=== PATIENT | male | born 1960 ===

== ENCOUNTER → 2016-08-18 08:46 | Day surgery (SDC) | payer OTHER ==
[~2016-08-18 08:46] MED LIST: Buffered Lidocaine 1% SYRIN* 3 ML/SYR SYRINGE INTRADERM ONE; Bupivacaine 0.25% SDV* 30 ML ONE; Dexamethasone IV* 4 MG/ML 1 ML (4 MG) IV SLOW PU ONE; Dexamethasone IV* 4 MG/ML 1 ML (4 MG) ONE; Famotidine IV* 10 MG/ML 2 ML (20 mg) IV ONE; Famotidine IV* 10 MG/ML 2 ML (20 mg) ONE; Ketorolac INJ* 30 MG/ML 1 ML VIAL ONE; Midazolam* 1 MG/ML 5 ML VIAL (5 MG) ONE; Ondansetron INJ* 2 MG/ML VIAL IV PRN; Ondansetron INJ* 2 MG/ML VIAL ONE; Propofol* 10 MG/ML 20 ML BTL IV PUSH ONE; fentaNYL* 50 MCG/ML 2 ML VIAL (100 MCG VIAL) ONE; oxyCODONE/Acetamin 5/325 MG* TAB PO PRN
[2016-08-18 14:53] VITALS: BP 132/91
--- NOTE | 2016-08-20 18:09 | OP ---
DATE OF OPERATION: 08/18/16 - [facility] DATE OF : 56 SURGEON: Ray Howard MD PLASTIC TOP ASSEMBLER: CLIF Falcon ANESTHESIOLOGIST: Dr. Pawel Escamilla. ANESTHESIA: Local MAC. PRE-OP DIAGNOSIS: Right carpal tunnel syndrome. POST-OP DIAGNOSIS: Right carpal tunnel syndrome. OPERATIVE PROCEDURE: Right open carpal tunnel release. INDICATIONS: Vadim is a 55-year-old inmate. He has had progressive bilateral carpal tunnel symptoms for quite some time. He has had elective diagnostics. We talked about risks and benefits. He has failed nonoperative management and just keeps progressing. At this time, he elected to proceed with surgery. ESTIMATED BLOOD LOSS: 5 mL. COMPLICATIONS: None. FINDINGS: As expected. DESCRIPTION OF PROCEDURE: Vadim was seen in the preoperative holding area and correct side, site and procedure were identified. We came back to the operating room where he got some anesthesia and then I infiltrated the operative area with 0.5% Marcaine. The arm was then prepped and draped in the usual fashion and a formal time-out was performed. Incision was made in standard location longitudinally about 2 to 3 cm in length for carpal tunnel release. Dissection was taken down to the skin and subcutaneous tissue and palmar fascia to identify the transverse carpal ligament. I then went ahead and released the transverse carpal ligament just off the radial aspect of the hook of the hamate. Release was carried out from distal to proximal. When I got to level of the proximal aspect of the incision , I created a subcutaneous tunnel just off the ulnar side of the palmaris longus tendon. A Kimberley retractor was placed in the skin and subcutaneous tissue retracted superficially. Under direct visualization, I then released the transverse carpal ligament with tenotomy scissors to a level about 4 to 5 cm proximal to the volar wrist flexion crease. I checked the decompression, there was absolutely no compression on the nerve proximally or distally. I therefore irrigated the wound. The skin was closed with some 5-0 nylon suture. The wound was dressed with Xeroform, 4x4's, sterile Webril, and an Jamey wrap. Tourniquet was then deflated. It had been inflated prior to making skin incision. He was then woken up and taken to the recovery room in stable condition. [id number]/[facility] #: [id number] [facility]
== END | disposition home or self-care (01) ==
LOC: OREAST 08:46
PROVIDERS: ATTEND Orthopaedic Surgery Hand Surgery
DX: G56.01 Carpal tunnel syndrome, right upper limb (principal); Z87.891 Personal history of nicotine dependence
CPT/HCPCS: J1100; J1885; J2250; J2405; J2704; J3010

== ENCOUNTER 2016-09-19 10:03 | Day surgery (SDC) | payer OTHER ==
[~2016-09-19 10:03] MED LIST changes: -Bupivacaine 0.25% SDV* 30 ML ONE; -Dexamethasone IV* 4 MG/ML 1 ML (4 MG) ONE; -Famotidine IV* 10 MG/ML 2 ML (20 mg) ONE; -Ketorolac INJ* 30 MG/ML 1 ML VIAL ONE; -Midazolam* 1 MG/ML 5 ML VIAL (5 MG) ONE; -Ondansetron INJ* 2 MG/ML VIAL IV PRN; -Ondansetron INJ* 2 MG/ML VIAL ONE; -Propofol* 10 MG/ML 20 ML BTL IV PUSH ONE; -fentaNYL* 50 MCG/ML 2 ML VIAL (100 MCG VIAL) ONE; -oxyCODONE/Acetamin 5/325 MG* TAB PO PRN
[2016-09-19] MEDS ORDERED: Famotidine IV* 10 MG/ML 2 ML (20 mg) ONE (11:42)
[2016-09-19] MEDS ORDERED: Dexamethasone IV* 4 MG/ML 1 ML (4 MG) ONE (11:42)
[2016-09-19] MEDS ORDERED: Bupivacaine 0.25% SDV* 30 ML ONE (12:09)
[2016-09-19] MEDS ORDERED: HYDROcodone/ACETAMIN 5-325 MG* 1 TAB PO PRN (12:19)
[2016-09-19] MEDS ORDERED: fentaNYL* 50 MCG/ML 2 ML VIAL (100 MCG VIAL) IV PRN (12:19)
[2016-09-19] MEDS ORDERED: Ketorolac INJ* 30 MG/ML 1 ML VIAL IV PRN (12:19)
[2016-09-19] MEDS ORDERED: Ondansetron INJ* 2 MG/ML VIAL IV PRN (12:19)
[2016-09-19] MEDS ORDERED: Midazolam* 1 MG/ML 2 ML VIAL (2 MG) ONE (12:20)
[2016-09-19] MEDS ORDERED: fentaNYL* 50 MCG/ML 2 ML VIAL (100 MCG VIAL) ONE (12:20)
[2016-09-19] MEDS ORDERED: Propofol* 10 MG/ML 20 ML BTL IV PUSH ONE (12:32)
[2016-09-19] MEDS ORDERED: Lidocaine 2% PF * 5 ML VIAL ONE (12:32)
[2016-09-19 15:05] VITALS: BP 114/73
--- NOTE | 2016-09-20 04:04 | OP ---
DATE OF OPERATION: 09/19/16 - [facility] DATE OF : 56 SURGEON: Ray Howard MD PAPER PLATE MACHINE TENDER: CLIF Falcon ANESTHESIOLOGIST: Dr. Burleson. ANESTHESIA: Local MAC. PRE-OP DIAGNOSIS: Left carpal tunnel syndrome. POST-OP DIAGNOSIS: Left carpal tunnel syndrome. OPERATIVE PROCEDURE: Left open carpal tunnel release. INDICATIONS: Vadim is a 55-year-old inmate. He had bilateral clinical and electrodiagnostic carpal tunnel syndrome. He has been dealing with this for years. He has tried bracing, anti-inflammatories and activity modification. He has done well with a recent right carpal tunnel release, and came back to the office desiring a left carpal tunnel release. We again talked about risks and benefits and he elected to proceed with surgery. ESTIMATED BLOOD LOSS: 5 mL. COMPLICATIONS: None. FINDINGS: As expected. DESCRIPTION OF PROCEDURE: Vadim was seen in the preoperative holding area and the correct site, side, and procedure were identified. We came back to the operating room where the arm was prepped and draped in the usual fashion and a formal time- out was performed. A standard 2 to 3 cm longitudinal incision was made in the typical location for an open carpal tunnel release. Dissection was carried down through the subcutaneous tissue and the palmar fascia to expose the transverse carpal ligament. I then palpated the hook of the hamate and began the release of the ligament just at the distal aspect. The transverse carpal ligament was released right off the radial aspect of the hook of the hamate. When I got to the level of the proximal aspect of the incision, I released the subcutaneous tissue and retracted it superficially and ulnarly. Using the tenotomy scissors under direct visualization, I released the remainder of the transverse carpal ligament and the distal end of the brachial fascia to a level of several centimeters proximal to the volar wrist flexion crease. This was released just ulnar to the palmaris longus tendon. I then checked the decompression and there was absolutely no compression on the nerve distally or proximally. The superficial palmar arch was identified and this was protected throughout the procedure. Once I was confident with the release, I went ahead and irrigated out the wound and the skin was closed with some 4-0 nylon horizontal mattress sutures. The wound was then dressed with Xeroform, 4x4's, sterile Webril, and an Jamey wrap. Tourniquet was deflated. The hand pinked up immediately. The arm was exsanguinated and the tourniquet was inflated to 250 mmHg prior to making skin incision. He was then taken to recovery room in stable condition. [id number]/[facility] #: [id number] [facility]
== END 2016-09-19 13:05 ==
LOC: OREAST 10:03
PROVIDERS: ATTEND Orthopaedic Surgery Hand Surgery
DX: G56.02 Carpal tunnel syndrome, left upper limb (principal); Z72.0 Tobacco use; F31.9 Bipolar disorder, unspecified
CPT/HCPCS: J1100; J2250; J2704; J3010